=== PATIENT | female | born 1965 | race Caucasian/White ===

== ENCOUNTER → 2020-03-04 | Outpatient (CLI) | payer OTHER ==
[~2020-03-04] MED LIST: FURO40TA6 PO; GEMF600T8 PO; LEVO112T41 PO; LISI-167 PO; MONT10TA6 PO; POTA8CAP20 PO
[2020-03-04 13:44] LABS: BASOPHILS # (AUTO) 0.03 x10^3/uL (0-0.1); BASOPHILS % (AUTO) 0 % (0-1); EOSINOPHILS # (AUTO) 0.08 x10^3/uL (0-0.4); EOSINOPHILS % (AUTO) 1 % (1-7); LYMPHOCYTES % (AUTO) 31 % (22-44); MD NO; MEAN CORPUSCULAR HGB CONC 32.9 g/dL (32.4-35.8); MEAN CORPUSCULAR VOLUME 88.2 fL (80-100); MEAN PLATELET VOLUME 8.5 fL (7.4-10.4); MONOCYTES # (AUTO) 0.48 x10^3/uL (0.2-0.8); MONOCYTES % (AUTO) 6 % (2-9); NEUTROPHILS % (AUTO) 62 % (42-75); PLATELET COUNT 298 x10^3/uL (130-400); RED BLOOD COUNT 4.51 x10^6/uL (3.82-5.3); RED CELL DISTRIBUTION WIDTH 13.5 % (9.6-15.2)
[2020-03-04 13:57] LABS: ALBUMIN 3.9 g/dL (3.4-5.0); ANION GAP 7 mmol/L (5-15); CALCIUM 8.9 mg/dL (8.5-10.1); CHLORIDE 106 mmol/L (98-107); CREATININE 1.04 mg/dL (0.55-1.02); TOTAL IRON BINDING CAPACITY 414 mcg/dL (250-450)
[2020-03-04 14:24] LABS: % IRON SATURATION 20 % (20-55); ALANINE AMINOTRANSFERASE 20 U/L (12-78); ALKALINE PHOSPHATASE 87 U/L (45-117); BILIRUBIN,TOTAL 0.4 mg/dL (0.2-1.0); IRON LEVEL 84 mcg/dL (50-170); PREALBUMIN 24.8 mg/dL (20.0-40.0); TOTAL PROTEIN 7.4 g/dL (6.4-8.2); TRANSFERRIN 291 mg/dL (200-360)
== END | disposition home or self-care (01) ==
LOC: STAR 12:52
PROVIDERS: ATTEND Thoracic Surgery (Cardiothoracic Vascular Surgery)
DX: Z01.818 Encounter for other preprocedural examination (principal); R94.31 Abnormal electrocardiogram [ECG] [EKG]
CPT/HCPCS: 36415; 71046; 80053; 82306; 82607; 82728; 83540; 83550; 83970; 84134; 84425; 84466; 85025; 93005